=== PATIENT | female | born 1975 | race Caucasian/White ===

== ENCOUNTER 2020-12-13 13:25 | Emergency (ER) | payer SELFPAY ==
[~2020-12-13] VITALS: Ht 162.6 cm; Wt 103.7 kg
[2020-12-13] MEDS ORDERED: ONDANSETRON PF 4 MG/2 ML VIAL. IVP ONE (14:00)
[2020-12-13] MEDS ORDERED: IV NORMAL SALINE 1,000ML 1,000 ML IV ONE (14:00)
--- NOTE | 2020-12-13 14:18 | PHYS DOC ---
Past History Past Medical History: No Pertinent History (XIMENA NASSAR APRN) Past Surgical History: No Surgical History (XIMENA NASSAR APRN) Alcohol Use: None (XIMENA NASSAR APRN) General Adult EDM: Chief Complaint: ABDOMINAL PAIN HPI: HPI: Patient is a 45-year-old female who presents with nausea, vomiting, abdominal pain for 8 days. Patient states "I am able to drink water but I cannot hold any food down". Patient states that she has been vomiting at least once a day every day. Patient states that her last bowel movement was over a week ago. "I did have some blood tinge in my time in my aunts and I probably have an ulcer". denies fever, diarrhea, or recent illness. Denies health history. (XIMENA NASSAR APRN) Review of Systems: Review of Systems: Constitutional: Denies fever or chills Eyes: Denies change in visual acuity HENT: Denies nasal congestion or sore throat Respiratory: Denies cough or shortness of breath Cardiovascular: Denies chest pain or edema GI: Reports abdominal pain, nausea, vomiting. Denies bloody stools or diarrhea : Denies dysuria Musculoskeletal: Denies back pain or joint pain Integument: Denies rash Neurologic: Denies headache, focal weakness or sensory changes Endocrine: Denies polyuria or polydipsia Lymphatic: Denies swollen glands Psychiatric: Denies depression or anxiety (XIMENA NASSAR APRN) Current Medications: Current Meds: Current Medications Medications (Trade) Dose Ordered Sig/[facility] Start Time Stop Time Status Last Admin Dose Admin Ondansetron HCl (Zofran) 4 mg 1X ONCE 12/13/20 14:00 12/13/20 14:01 DC Sodium Chloride 1,000 ml @ 1,000 mls/hr 1X ONCE 12/13/20 14:00 12/13/20 14:59 (XIMENA NASSAR APRN) Allergies: Allergies: Allergies Coded Allergies Type Severity Reaction Last Updated Verified No Known Drug Allergies 12/13/20 No (XIMENA NASSAR APRN) Physical Exam: PE: Constitutional: Well developed, well nourished, no acute distress, non-toxic appearance. [] HENT: Normocephalic, atraumatic, bilateral external ears normal, oropharynx moist, no oral exudates, nose normal. [] Eyes: PERRLA, EOMI, conjunctiva normal, no discharge. [] Neck: Normal range of motion, no tenderness, supple, no stridor. [] Cardiovascular:Heart rate regular rhythm, no murmur [] Lungs & Thorax: Bilateral breath sounds clear to auscultation [] Abdomen: Bowel sounds normal, soft, tenderness at umbilical, no masses Skin: Warm, dry, no erythema, no rash. [] Back: No tenderness, no CVA tenderness. [] Extremities: No tenderness, no cyanosis, no clubbing, ROM intact, no edema. [] Neurologic: Alert and oriented X 3, normal motor function, normal sensory function, no focal deficits noted. [] Psychologic: Affect normal, judgement normal, mood normal. [] (XIMENA NASSAR APRN) Current Patient Data: Vital Signs: Vital Signs Date Time Temp Pulse Resp B/P (MAP) Pulse Ox O2 Delivery O2 Flow Rate FiO2 12/13/20 13:30 98.1 106 16 117/67 (84) 95 Room Air (XIMENA NASSAR APRN) EKG: EKG: Normal sinus rhythm. Heart rate 76 bpm. [] (XIMENA NASSAR APRN) Radiology/Procedures: Radiology/Procedures: []EXAM: CT Abdomen and Pelvis without IV contrast CLINICAL HISTORY: ABDOMINAL PAIN, NAUSEA AND VOMITING X 9 YEARS COMPARISON: none TECHNIQUE: Helical CT of the abdomen and pelvis without intravenous contrast. Axial, coronal and sagittal reformatted images were generated. PQRS compliance statement - One or more of the following individualized dose reduction techniques were utilized for this study: 1. Automated exposure control 2. Adjustment of the mA and/or kV according to patient size 3. Use of iterative reconstruction technique FINDINGS: Lack of intravenous contrast limits evaluation of solid organs, vasculature, and lymph nodes. Lower chest: Lung bases are clear. Abdomen and Pelvis: High density material within the gallbladder likely sludge or noncalcified gallstones. No focal liver lesion. Spleen is unremarkable. Adrenal glands are normal. Pancreas is unremarkable. No focal renal lesion. No hydronephrosis. No hydroureter. Bladder is u nremarkable. Moderate colonic stool content. Appendix is normal. No small or large bowel dilatation. No bowel obstruction. Uterus and adnexa are grossly unremarkable. No abdominal or pelvic ascites. No abdominal or pelvic lymphadenopathy. Bones: No aggressive osseous lesion. Right hip joint degenerative changes are seen. IMPRESSION: 1. High-density material within the gallbladder likely sludge or noncalcified gallstones 2. No bowel obstruction. Moderate colonic stool content. 3. No abdominal or pelvic ascites. Electronically signed by: Taz Ndiaye MD (12/13/2020 3:18 PM) [id number] XR CHEST 1V Clinical Indication: Reason: abd pain / Comparison: None. Findings: The cardiomediastinal silhouette is normal. Lungs are clear. There is no pn eumothorax. No pleural effusion is appreciated. No acute bone abnormality. IMPRESSION: No acute cardiopulmonary process. Electronically signed by: Feliberto Lazar MD (12/13/2020 3:41 PM) [id number] (XIMENA NASSAR APRN) Heart Score: Risk Factors: Risk Factors: DM, Current or recent (<one month) smoker, HTN, HLP, family history of CAD, obesity. Risk Scores: Score 0 - 3: 2.5% MACE over next 6 weeks - Discharge Home Score 4 - 6: 20.3% MACE over next 6 weeks - Admit for Clinical Observation Score 7 - 10: 72.7% MACE over next 6 weeks - Early Invasive Strategies (XIMENA NASSAR APRN) Course & Med Decision Making: Course & Med Decision Making Pertinent Labs and Imaging studies reviewed. (See chart for details) [] Patient is a 45-year-old female who presents with nausea, vomiting, abdominal pain for 8 days. Patient states "I am able to drink water but I cannot hold any food down". Patient states that she has been vomiting at least once a day every day. Patient states that her last bowel movement was over a week ago. "I did have some blood tinge in my time in my aunts and I probably have an ulcer". denies fever, diarrhea, or recent illness. Denies health history. CT of abdomen and pelvis ordered. Zofran given for nausea and vomiting. Potassium of 2.4. PO potassium ordered. CT of abdomen and pelvis shows high-density material within the gallbladder likely sludge or noncalcified gallstones. No bowel obstruction noted. Moderate colonic stool content. Patient will discharge to home. Patient in a prescription for Zofran to take at home. Patient also given a list for PCPs due to patient not having a relationship with her own primary. Patient potassium was 2.4 and was replaced with 40 MEQ's in the emergency room. We will send patient home with a prescription for potassium. Patient's CT of abdomen showed sludge within the gallbladder and also moderate stool. Patient will also start taking MiraLAX at home to help with constipation. Patient is hemodynamically stable and able to ambulate out of the emergency room on her own. (XIMENA NASSAR APRN) Dragon Disclaimer: Sangeeta Disclaimer: This electronic medical record was generated, in whole or in part, using a voice recognition dictation system. (XIMENA NASSAR APRN) Departure Departure: Impression: Primary Impression: Nausea & vomiting Qualified Codes: R11.2 - Nausea with vomiting, unspecified Additional Impression: Hypokalemia Disposition: 01 DC HOME SELF CARE/HOMELESS Condition: GOOD Referrals: PCP,NO (PCP) Patient Instructions: Nausea and Vomiting, [id number] Additional Instructions: Seen in the emergency room today for nausea and vomiting. Your CT shows moderate stool and also sludge in your gallbladder. You were given Zofran in the emergency room for nausea which improved your symptoms. I am writing you a prescription for Zofran for at home. Your potassium also was low in the emergency room, I am sending you home with a prescription for potassium to take daily. Please contact one of the providers listed to establish care with a primary care physician. Please return to the emergency room with worsening symptoms or concerns otherwise follow-up with a PCP for further evaluation and management. EMERGENCY DEPARTMENT GENERAL DISCHARGE INSTRUCTIONS Thank you for coming to [facility] (ED) today and trusting us with you care. We trust that you had a positivie experience in our Emergency Department. If you wish to speak to the department management, you may call the director at [phone]. YOUR FOLLOW UP INSTRUCTIONS ARE FOLLOWS: 1. Do you have a private Doctor? If you do not have a private doctor, please ask for a resource list of physicians or clinics that may be able to assist you with follow up care. 2. The Emergency Physician has interpreted your x-rays. The X-Ray specialist will also review them. If there is a change in the findings, you will be notified in 48 hours when at all possible. 3. A lab test or culture has been done, your results will be reviewed and you will be notified if you need a change in treatment. ADDITIONAL INSTRUCTIONS AND INFORMATION: 1. Your care today has been supervised by a physician who is specially trained in emergency care. Many problems require more than one evaluation for a complete diagnosis and treatment. We recommend that you schedule your follow up appointment as recommended to ensure complete treatment of you illness or injury. If you are unable to obtain follow up care and continue to have a problem, or if your condition worsens, we recommend that you return to the ED. 2. We are not able to safely determine your condition over the phone nor are we able to give sound medical advice over the phone. For these safety reasons, if you call for medical advice we will ask you to come to the ED for further evaluation. 3. If you have any questions regarding these discharge instructions please call the ED at [phone]. SAFETY INFORMATION: In the interest of safety, wellness, and injury prevention; we encourage you to wear your sealbelt, if you smoke; quite smoking, and we encourage family to use a protective helmet for bicycling and other sporting events that present an increased risk for head injury. IF YOUR SYMPTOMS WORSEN OR NEW SYMPTOMS DEVELOP, OR YOU HAVE CONCERNS ABOUT YOUR CONDITION; OR IF YOUR CONDITION WORSENS WHILE YOU ARE WAITING FOR YOUR FOLLOW UP APPOINTMENT; EITHER CONTACT YOUR PRIMARY CARE DOCTOR, THE PHYSICIAN WHOSE NAME AND NUMBER YOU WERE GIVEN, OR RETURN TO THE ED IMMEDIATELY. Scripts Potassium Chloride (POTASSIUM CHLORIDE ) 20 Meq Tablet.er 20 MEQ PO DAILY for SUPPLEMENT for 7 Days, #7 TAB Prov: XIMENA NASSAR APRN 12/13/20 Ondansetron Hcl (ZOFRAN) 4 Mg Tablet 4 MG PO TID PRN for NAUSEA for 4 Days, #12 TAB Prov: XIMENA NASSAR APRN 12/13/20 Attending Signature Attending Signature I have reviewed the PA/SOCIAL DIRECTOR's note and plan of care. I was available for consultation as needed during the patient's visit in the emergency department. I agree with the clinical impression, plan, and disposition. (NELDA OCHOA DO) XIMENA NASSAR SHOE DESIGNER Dec 13, 2020 14:18 NELDA OCHOA DO Dec 14, 2020 00:28
[2020-12-13 14:48] LABS: BASO % 1 % (0-3); EOS # 0.1 x10^3/uL (0.0-0.7); EOS % 1 % (0-3); HEMATOCRIT 39.7 % (36.0-47.0); HEMOGLOBIN 12.9 g/dL (12.0-15.5); LYMPH # 0.6 x10^3/uL (1.0-4.8); LYMPH % 11 % (24-48); MEAN CORPUSCULAR HEMOGLOBIN 27 pg (25-35); MEAN CORPUSCULAR HGB CONC 33 g/dL (31-37); MEAN CORPUSCULAR VOLUME 84 fL (79-100); MONO # 0.5 x10^3/uL (0.0-1.1); MONO % 9 % (0-9); NEUT # 4.2 x10^3uL (1.8-7.7); NEUT % 78 % (31-73); PLATELET COUNT 267 x10^3/uL (140-400); RED BLOOD COUNT 4.72 x10^6/uL (3.50-5.40); RED CELL DISTRIBUTION WIDTH 19.4 % (11.5-14.5); WHITE BLOOD COUNT 5.3 x10^3/uL (4.0-11.0)
[2020-12-13 14:53] LABS: ALBUMIN 3.3 g/dL (3.4-5.0); ALBUMIN/GLOBULIN RATIO 0.7 (1.0-1.7); CALCIUM 8.8 mg/dL (8.5-10.1); CREATININE 0.9 mg/dL (0.6-1.0); GFR 67.4; TOTAL BILIRUBIN 0.4 mg/dL (0.2-1.0); TOTAL PROTEIN 7.9 g/dL (6.4-8.2)
[2020-12-13 14:55] LABS: POTASSIUM 2.4 mmol/L (3.5-5.1)
[2020-12-13] MEDS ORDERED: POTASSIUM CHLORIDE 20 MEQ TABLET.ER. PO ONE (15:00)
--- NOTE | 2020-12-13 15:20 | RAD ---
EXAM: CT Abdomen and Pelvis without IV contrast CLINICAL HISTORY: ABDOMINAL PAIN, NAUSEA AND VOMITING X 9 YEARS COMPARISON: none TECHNIQUE: Helical CT of the abdomen and pelvis without intravenous contrast. Axial, coronal and sagi ttal reformatted images were generated. PQRS compliance statement - One or more of the following individualized dose reduction techniques wer e utilized for this study: 1. Automated exposure control 2. Adjustment of the mA and/or kV according to patient size 3. Use of iterative reconstruction technique FINDINGS: Lack of intravenous contrast limits evaluation of solid organs, vasculature, and lymph nodes. Lower chest: Lung bases are clear. Abdomen and Pelvis: High density material within the gallbladder likely sludge or noncalcified gallstones. No focal liver lesion. Spleen is unremarkable. Adrenal glands are normal. Pancreas is unremarkable. No focal renal lesion. No hydronephrosis. No hydroureter. Bladder is unremarkable. Moderate colonic stool content. Appendix is normal. No small or large bowel dilatation. No bowel obst ruction. Uterus and adnexa are grossly unremarkable. No abdominal or pelvic ascites. No abdominal or pelvic lymphadenopathy. Bones: No aggressive osseous lesion. Right hip joint degenerative changes are seen. IMPRESSION: 1. High-density material within the gallbladder likely sludge or noncalcified gallstones 2. No bowel obstruction. Moderate colonic stool content. 3. No abdominal or pelvic ascites. Electronically signed by: Taz Ndiaye MD (12/13/2020 3:18 PM) [id number]
--- NOTE | 2020-12-13 15:44 | RAD ---
XR CHEST 1V Clinical Indication: Reason: abd pain / Comparison: None. Findings: The cardiomediastinal silhouette is normal. Lungs are clear. There is no pneumothorax. No pleural eff usion is appreciated. No acute bone abnormality. IMPRESSION: No acute cardiopulmonary process. Electronically signed by: Feliberto Lazar MD (12/13/2020 3:41 PM) [id number]
[2020-12-13 16:16] LABS: COLOR,URINE AMBER
[2020-12-13 16:17] LABS: BACTERIA,URINE 0 /HPF (0-FEW); BILIRUBIN,URINE MOD (NEG); CLARITY,URINE CLEAR; GLUCOSE,URINE NEG (NEG); NITRITE,URINE NEG (NEG); RBC,URINE TNTC /HPF (0-2); SQUAMOUS EPITHELIAL CELL,UR MOD /LPF; WBC,URINE OCC /HPF (0-4)
--- NOTE | 2020-12-13 16:27 | EKG ---
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
[2020-12-13] MEDS ORDERED: POTA20TA4 PO (16:29)
[2020-12-13] MEDS ORDERED: ONDA4TAB7 PO (16:29)
[2020-12-13 16:30] VITALS: BP 131/75
== END 2020-12-13 16:47 | disposition home or self-care (01) ==
LOC: ER 13:25
DX: E87.6 Hypokalemia (principal); R11.2 Nausea with vomiting, unspecified; R10.33 Periumbilical pain
CPT/HCPCS: 36415; 71045; 74176; 80053; 81001; 81025; 83735; 85025; 93005; 96361; 96374; 99285; J2405; J7030